=== PATIENT | male | born 1975 ===

== ENCOUNTER 2016-12-08 11:52 | Emergency (ER) | payer SELFPAY ==
[2016-12-08 11:59] VITALS: BP 131/94; PULSE 99; RESP 16; TEMP 98.8; O2SAT 94
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
== END 2016-12-08 13:10 | disposition left against medical advice (07) ==
DX: F10.120 Alcohol abuse with intoxication, uncomplicated (principal); F17.200 Nicotine dependence, unspecified, uncomplicated